=== PATIENT | male | born 1945 | race Caucasian/White ===

== ENCOUNTER → 2016-06-15 | Outpatient (CLI) | payer MEDICARE, OTHER ==
[~2016-06-15] MED LIST: ALDACTONE25 MG PO; ASPIRIN LO-DOSE81 MG PO; ATROVENT NASAL15 ML NOSE; BACTRIM DS1 TAB; CLARITIN10 MG PO; CLEOCIN150 MG PO; COLACE100 MG PO; DOXYCYCLINE100 MG; FISH OIL1000 MG; FLUNISOLIDE25 ML NOSE; FOLIC ACID1 MG PO; GUAIFENESIN400 MG PO; IBUPROFEN600 MG PO; K-TAB ER20 MEQ PO; LASIX20 M1 PO; LIORESAL10 MG PO; LOPRESSOR25 MG PO; MIRALAX17 GM PO; MULTI-DAY PLUS1 EAC1 PO; NEURONTIN300 MG PO; NITROSTAT0.4 MG SL; NIZORAL120 ML TOP; PRAVACHOL40 MG PO; PROVENTIL OR V6.7 GM INH; SEROQUEL300 MG PO; SLO-NIACIN500 MG PO; SPIRIVA18 MCG INH; SYMBICORT 80-10.2 GM INH; WELLBUTRIN100 MG PO; ZANTAC (NON-FO150 MG; [UNRECOGNIZED DRUG - CODE] TOP; [UNRECOGNIZED DRUG - OTHER] PO
[2016-06-15 15:17] LABS: BASOPHIL # 0.1 K/uL (0.0-0.2); BASOPHIL % 0.8 %; EOSINOPHIL % 0.6 %; HEMATOCRIT 46.6 % (37.0-53.0); HEMOGLOBIN 15.5 g/dL (11.0-16.0); IMMATURE GRANULOCYTE % 0.6 %; LYMPHOCYTE # 1.9 K/uL (0.8-4.0); LYMPHOCYTE % 30.1 %; MCH 34.5 pg (27.0-34.0); MCHC 33.3 gm/dL (32.0-36.5); MCV 103.8 fl (83.0-98.0); MONOCYTE # 0.7 K/uL (0.0-1.0); MONOCYTE % 10.4 %; MPV 9.3 fl (9.4-12.4); NEUTROPHIL # (ANC) 3.7 K/uL (1.4-9.0); NEUTROPHIL % 57.5 %; NRBC % 0 /100WBC (0-0.00); PLATELET COUNT 204 K/uL (150-450); RBC 4.49 M/uL (3.50-5.50); RDW-CV 14.5 % (11.9-14.6); WBC 6.4 K/uL (4.0-11.0)
[2016-06-15 15:34] LABS: ALBUMIN 3.6 gm/dL (3.5-5.0); ALK PHOS 95 IU/L (33-138); ALT 27 IU/L (12-78); AST 23 IU/L (10-40); BLOOD UREA NITROGEN 10 mg/dL (6-24); CALCIUM 8.5 mg/dL (8.5-10.5); CHLORIDE 111 mMol/L (96-110); CO2 25 mMol/L (22-32); CREATININE 1.1 mg/dL (0.6-1.3); ESTIMATED GFR (MDRD EQUATION) > 60; MAGNESIUM 1.7 mg/dL (1.3-2.6); POTASSIUM 3.9 mMol/L (3.7-5.1); TOTAL BILIRUBIN 0.4 mg/dL (0.0-1.5); TOTAL PROTEIN 6.7 g/dL (6.0-8.4)
[2016-06-15 15:35] LABS: ANION GAP 14.9 (10.0-19.0); SODIUM 147 mMol/L (135-145)
== END | disposition disaster alternative care site (69) ==
LOC: LNHI 14:33
PROVIDERS: Internal Medicine Cardiovascular Disease
DX: I25.10 Atherosclerotic heart disease of native coronary artery without angina pectoris (principal); I25.5 Ischemic cardiomyopathy; I49.3 Ventricular premature depolarization; R53.83 Other fatigue

== ENCOUNTER → 2016-06-20 | Outpatient (CLI) | payer MEDICARE, OTHER ==
--- NOTE | ~2016-06-20 | ESTC ---
Cardiac Perfusion Imaging Demographics Patient Name CORETTA Tavares Gender Male Patient Number [id number] Race Visit Number [id number] [place] [id number] Room Number Accession Number [id number] Height Date of 1945 Weight Age 70 year(s) BSA Referring Alexy Muñoz BMI Physician Gato ROD Interpreting Nel Grover Date of study 06/20/2016 Physician Supervising MD/MLP Siomara Shaw APRN NM Technologist Génesis Tucker Ordering Physician Alexy Muñoz Stress Duong Hoskins MD echocardiograph technician RDCS, RVT Stress ECG Reading Siomara Shaw APRN Nurse Dolores Chowdhury RN Physician Ashlyn Wakefield RN Procedure Procedure Type: Nuclear Stress Test:Pharmacological, Lexiscan, Cardiolite Stress Test Procedure Start time: 06/20/2016 09:06 Indications: Non-ischemic cardiomyopathy. Risk Factors The patient risk factors include:prior PCI;prior CABG;hypercholesterolemia, hypertension, family history of premature CAD, chronic lung disease, prior valve surgery/procedure , dyslipidemia, prior heart failure and prior TN . Conclusions Summary Perfusion Images: The overall quality of the study is good. Left ventricular cavity is noted to be normal on the stress and normal on the rest images. There is no evidence of abnormal lung activity. The right ventricle is not visualized an cannot be assessed. Impression ECG portion of the lexiscan stress test is clinically negative for ischemia by diagnostic criteria. Myocardial perfusion imaging is moderately abnormal. 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 Overall left ventricular systolic function was abnormal. Gated wall motion is abnormal, entire apex is akinetic and calculated LVEF of 46% and TID ratio is 1.07. This is a intermediate risk stress test. No significant change compared to nuclear stress test done in 07/2013. Stress Protocols Resting ECG Normal sinus rhythm. Pre-stress physical exam: Patient assessed by Anand MCCLAIN prior to testing. Chest - CTA, Dim Bases Cardio - RRR, S1, S2 Peak HR:63 bpm HR response: Appropriate Peak BP:144/80 mmHg BP response: Appropriate Predicted HR: 149 bpm HR/BP product:9072 % of predicted HR: 42 Reason for termination:Infusion complete ECG Findings No ECG changes suggestive of ischemia. Arrhythmias No rhythm abnormality. Symptoms Shortness of breath. Chest Pressure. Complications Procedure complication: None. Stress Interpretation Appropriate hemodynamic response to Lexiscan. No significant ST-T wave changes with Lexiscan. ECG portion is negative for ischemia by diagnostic criteria. Will correlate with nuclear images. Imaging Results Summed scores - Summed stress score: 14 - Summed rest score: 15 - Summed difference score: -1 Stress ejection Ejection fraction:46 % EDV :126 ml ESV :68 ml Stroke volume :58 ml LV mass :139 gr Imaging Protocols Rest Stress Isotope:Tc99m Sestamibi IV Isotope: Tc99m Sestamibi IV Isotope dose:14.5 mCi Isotope dose:43.6 mCi Date:06/20/2016 07:38 Date:06/20/2016 09:20 Technique: SPECT Technique: Gated Supine SPECT Supine Scan Time:45-60 minutes post Scan Time:45-60 minutes post injection injection Procedure Medications - Regadenoson (Lexiscan) 0.4 mg IV over 10-15 sec. I.V. 0.4 mg. Medical History Admission Medications + +------+ + + +--------+ !Name !Dosage!Times per day !Start date !Stop date !Details ! + +------+ + + +--------+ !Aspirin (any) ! ! ! ! ! ! + +------+ + + +--------+ !Beta Raul (any) ! ! ! ! ! ! + +------+ + + +--------+ !Statin (any) ! ! ! ! ! ! + +------+ + + +--------+ Admission Data Admission date: 06/20/2016 Admission Time: 06:56 Hospital Status: Outpatient. Signatures dtt: dtd: 06/20/16905 Physician Self Edit
== END | disposition disaster alternative care site (69) ==
LOC: GRAD 06:56
DX: I42.9 Cardiomyopathy, unspecified (principal); I50.9 Heart failure, unspecified; I49.3 Ventricular premature depolarization; E78.00 Pure hypercholesterolemia, unspecified; E78.5 Hyperlipidemia, unspecified; I10 Essential (primary) hypertension; I25.2 Old myocardial infarction; J98.4 Other disorders of lung; Z82.49 Family history of ischemic heart disease and other diseases of the circulatory system
CPT/HCPCS: A9500; J2785